=== PATIENT | male | born 1965 | race Caucasian/White ===

== ENCOUNTER 2019-12-20 12:32 | Emergency (ER) | payer OTHER ==
[~2019-12-20] VITALS: Ht 170.2 cm; Wt 88.9 kg
[~2019-12-20 12:32] MED LIST: BG MC; ECO81 PO; GLIPIZIDE5 MG PO; GLU5 PO; HUMULIN R100 U/1 M1 SC; LIPI10 PO; METFORMIN HCL1000 MG PO; THERAGRAN-M1 TA4 PO; TYL325 PO; ZES10 PO
[2019-12-20 12:45] VITALS: Ht 170.2 cm; Wt 88.9 kg
[2019-12-20 13:24] LABS: BASOPHIL % 0.7 % (0-2); PLATELET COUNT 349 x10^3mcL (130-400); RED CELL DISTRIBUTION WIDTH 15.7 % (11.5-14.5)
[2019-12-20 15:16] VITALS: BP 134/71
== END 2019-12-20 15:16 | disposition home or self-care (01) ==
LOC: ED 12:32
PROVIDERS: Emergency Medicine
DX: S91.301D Unspecified open wound, right foot, subsequent encounter (principal); I10 Essential (primary) hypertension; E11.9 Type 2 diabetes mellitus without complications; Z98.890 Other specified postprocedural states; X58.XXXD Exposure to other specified factors, subsequent encounter
CPT/HCPCS: 36415